=== PATIENT | female | born 1980 | race Caucasian/White ===

== ENCOUNTER → 2018-05-16 | Outpatient (CLI) | payer OTHER ==
--- NOTE | 2018-05-16 08:31 | RADIOLOGY IMAGING REPORT ---
FACILITY: [facility] PATIENT NAME: Lauren Knowles : 1980 MR: [id number] V: [id number] EXAM DATE: ORDERING PHYSICIAN: MALATHI AYALA [place]CHN[place] [facility] [place] : 1980 Visit/Account:[id number] Date of Sevice: 05/16/2018 Limited back soft tissue ultrasound INDICATION: Mass on back COMPARISON: None available FINDINGS: In the area of interest in the posterior right lower back region there is a 3.7 x 0.7 x 3.4 cm ovoid circumscribed hypoechoic structure with linear internal echogenic septations within the deep soft tissues. Comparison imaging was performed on the contralateral side for comparison purposes. No similar findi ng seen on the right. IMPRESSION: 3.7 x 0.7 x 3.4 cm nonspecific circumscribed ovoid nodule in the posterior left lower back deep soft tissues which is favored to represent a benign lipoma. Contrast-enhanced CT may be warranted to exclude suspicious/complex nodularity within this nodule (i. e. exclude a liposarcoma) which may not be visible by ultrasound. Report Dictated By: Speedy Taylor MD at 05/16/2018 8:20 AM Report E-Signed By: Speedy Taylor MD at 05/16/2018 8:27 AM WSN:[id number]
== END ==
LOC: US 02:42
PROVIDERS: ATTEND Nurse Practitioner Family
DX: R22.2 Localized swelling, mass and lump, trunk (principal)
CPT/HCPCS: 76999

== ENCOUNTER → 2018-06-06 | Outpatient (CLI) | payer OTHER | LOC: LAB 14:13 | PROVIDERS: ATTEND Surgery | DX: D17.1 Benign lipomatous neoplasm of skin and subcutaneous tissue of trunk (principal) | CPT/HCPCS: 88304 ==